=== PATIENT | male | born 1975 | race Caucasian/White ===

== ENCOUNTER 2017-10-02 14:51 | Emergency (ER) | payer BC ==
[~2017-10-02] VITALS: Ht 175.3 cm; Wt 123.8 kg
[2017-10-02 15:19] LABS: HEMATOCRIT 46.3 % (38.0-50.0); HEMOGLOBIN 16.7 G/DL (12.5-16.6); MCH 31.1 PG (29.0-34.0); MCHC 36.1 G/DL (30.0-36.0); MCV 86.2 FL (86-99); PLATELET COUNT 154 K/uL (156-360); RBC DIS.WIDTH-CV 12.9 % (11.8-14.6); RBC DIS.WIDTH-SD 40.1 % (39-53); RED BLOOD COUNT 5.37 M/uL (4.00-5.50); WHITE BLOOD COUNT 8.7 K/uL (4.1-10.2)
[2017-10-02 15:28] LABS: ALBUMIN 3.9 g/dL (3.2-4.8); CHLORIDE 99 mEq/L (99-109); POTASSIUM 3.5 mEq/L (3.7-5.4); SODIUM 131 mEq/L (136-147)
[2017-10-02 15:29] LABS: MAGNESIUM 1.7 mg/dL (1.3-2.7)
[2017-10-02 15:31] LABS: GLUCOSE 123 mg/dL (70-99); TOTAL PROTEIN 7.4 g/dL (6.4-8.3)
[2017-10-02 15:33] LABS: TOTAL BILIRUBIN 2.4 mg/dL (0.0-1.0)
[2017-10-02 15:34] LABS: ALKALINE PHOSPHATASE 50 IU/L (3-129)
[2017-10-02 15:35] LABS: CREATININE 1.2 mg/dL (0.6-1.3); GFR ESTIMATE (CALCULATED) > 59 mL/min/ (58.99-99999)
[2017-10-02 15:36] LABS: AST (GOT) 19 IU/L (2-34); UREA NITROGEN (BUN) 11 mg/dL (9-23)
[2017-10-02 15:37] LABS: ALT (GPT) 23 IU/L (3-49)
[2017-10-02 15:38] LABS: LIPASE 17 U/L (1.0-51.0)
[2017-10-02 16:11] LABS: APPEARANCE SL.HAZY ((CLEAR)); BILIRUBIN NEGATIVE; BLOOD NEGATIVE; COLOR AMBER ((YELLOW)); GLUCOSE (STRIP) 50; KETONES NEGATIVE; LEUKOCYTES NEGATIVE; NITRITE NEGATIVE; PROTEIN (STRIP) 100; SPECIFIC GRAVITY 1.028 (1.000-1.030); UROBILINOGEN 0.2 MG/DL (0.2-1.0)
[2017-10-02 17:25] LABS: EPITHELIAL CELLS 1+ /HPF; RED BLOOD CELLS 0-5 /HPF (0-5); WHITE BLOOD CELLS 0-5 /HPF (0-5)
[2017-10-02 17:26] LABS: BACTERIA 1+ /HPF; MUCUS 1+ /LPF; UCUL ADDED? NO
[2017-10-02 17:27] LABS: HYALINE CASTS 0-5 /LPF
[2017-10-02 17:28] LABS: COARSE GRANULAR CASTS 0-5 /LPF
[2017-10-02] MEDS ORDERED: FLAGYL500 MG PO (18:35)
[2017-10-02] MEDS ORDERED: CIPRO500 MG PO (18:35)
[2017-10-02 19:08] VITALS: BP 127/82
== END 2017-10-02 19:11 | disposition home or self-care (01) ==
LOC: EME 14:51
PROVIDERS: Emergency Medicine
DX: K52.9 Noninfective gastroenteritis and colitis, unspecified (principal); E86.0 Dehydration; Z87.891 Personal history of nicotine dependence; Z87.19 Personal history of other diseases of the digestive system; Z98.890 Other specified postprocedural states
CPT/HCPCS: 74177; 80053; 81003; 83690; 83735; 85027; 99281; 99284; J7040